=== PATIENT | female | born 1980 | race American Indian/Alaskan Native ===

== ENCOUNTER 2016-12-29 23:08 | Emergency (ER) | payer SELFPAY ==
[2016-12-29 23:17] VITALS: BP 146/88
[2016-12-29 23:40] LABS: Basophils % (Auto) 0.6 % (0.0-1.8); Hematocrit 33.6 % (30.3-42.9); Hemoglobin 10.8 gm/dl (10.1-14.3); Mean Corpuscular HGB Conc 32 % (30-34); Mean Corpuscular Hemoglobin 29 pg (28-32); Mean Corpuscular Volume 91 fl (79-97); Platelet Count 246 K/mm3 (140-440); Red Blood Count 3.68 M/mm3 (3.65-5.03); Red Cell Distribution Width 14.5 % (13.2-15.2); White Blood Count 8.7 K/mm3 (4.5-11.0)
[2016-12-29 23:59] LABS: Anion Gap 19 mmol/L; BUN/Creatinine Ratio 17.77; Blood Urea Nitrogen 16 mg/dL (7-17); Calcium 8.9 mg/dL (8.4-10.2); Carbon Dioxide 23 mmol/L (22-30); Chloride 103.8 mmol/L (98-107); Glucose 98 mg/dL (65-100); Potassium 3.9 mmol/L (3.6-5.0); Sodium 142 mmol/L (137-145)
--- NOTE | 2017-01-01 15:31 | ED Elopement Review ---
ED Pt Elopement review - Results review Lab results: Laboratory Tests 12/29/16 12/29/16 12/29/16 23:30 23:30 23:30 WBC 8.7 RBC 3.68 Hgb 10.8 Hct 33.6 MCV 91 MCH 29 MCHC 32 RDW 14.5 Plt Count 246 Lymph % (Auto) 28.2 Riley % (Auto) 8.0 H Eos % (Auto) 3.0 Baso % (Auto) 0.6 Lymph # 2.5 Riley # 0.7 Eos # 0.3 Baso # 0.1 Seg Neutrophils % 60.2 Seg Neutrophils # 5.3 Sodium 142 Potassium 3.9 Chloride 103.8 Carbon Dioxide 23 Anion Gap 19 BUN 16 Creatinine 0.9 Estimated GFR > 60 BUN/Creatinine Ratio 17.77 Glucose 98 Calcium 8.9 HCG, Qual Negative - Call Back decision Pt Call Back Decision: No action required
== END 2016-12-30 04:41 | disposition left against medical advice (07) ==
LOC: ED 23:08
DX: R11.0 Nausea (principal); Z53.21 Procedure and treatment not carried out due to patient leaving prior to being seen by health care provider
CPT/HCPCS: 36415; 80048; 84703; 85025

== ENCOUNTER 2020-07-21 10:54 | Emergency (ER) | payer OTHER ==
[2020-07-21] MEDS ORDERED: SODIUM CHLORIDE 0.9% 1000 ML 1,000 ML IV ONE (11:23)
[2020-07-21] MEDS ORDERED: MORPHINE 4 MG/1 ML INJ IV ONE ×2 (11:29→14:16)
[2020-07-21] MEDS ORDERED: ONDANSETRON 4 MG/2 ML INJ IV ONE (11:29)
--- NOTE | 2020-07-21 11:36 | Emergency Department Report ---
ED Abdominal Pain HPI - General Chief Complaint: Abdominal Pain Stated Complaint: PELVIC PAIN Time Seen by Provider: 07/21/20 11:23 Source: patient Mode of arrival: Ambulatory Limitations: No Limitations - History of Present Illness Initial Comments: Patient is 40 years old 6 para 1 with 2 miscarriage and 3 ectopic before. Last ectopic was 17 years ago. Patient presented to the ER complaining of sudden onset of left lower quadrant pain approximately 3 hours ago prior to coming to the ER. Patient described her pain as crampy in nature with no radiation increases with movement. No relieving factors. Patient denied any vaginal bleeding, vaginal discharge, dysuria or hematuria. Patient stated that her menstrual cycle ended beginning of July. Patient currently denying any fever, chills, chest pain, shortness of breath or cough. MD Complaint: abdominal pain -: hour(s) (3) Location: LLQ Radiation: none Migration to: no migration Severity: severe Severity scale (0 -10): 9 Quality: cramping Consistency: constant - Related Data Previous Rx's Medication Instructions Recorded Last Taken Type Ciprofloxacin HCl [Ciprofloxacin 500 mg PO Q12HR #14 tab 07/21/20 Unknown Rx TAB] Dicyclomine [Bentyl] 20 mg PO QID #30 tablet 07/21/20 Unknown Rx metroNIDAZOLE [Flagyl] 500 mg PO Q12HR #14 tab 07/21/20 Unknown Rx Allergies Allergy/AdvReac Type Severity Reaction Status Date / Time Penicillins Allergy Unknown Verified 12/29/16 23:17 shellfish derived Allergy Unknown Verified 12/29/16 23:17 ED Review of Systems ROS: Stated complaint: PELVIC PAIN Other details as noted in HPI Comment: All other systems reviewed and negative Constitutional: denies: chills, fever Respiratory: denies: cough, shortness of breath, SOB with exertion, SOB at rest Cardiovascular: denies: chest pain, palpitations Gastrointestinal: abdominal pain. denies: nausea, vomiting, diarrhea, constipation, hematemesis, melena, hematochezia Musculoskeletal: denies: back pain Neurological: denies: headache, weakness, numbness, paresthesias, confusion, abnormal gait ED Past Medical Hx - Past Medical History Previous Medical History?: Yes Hx Arthritis: Yes Hx Psychiatric Treatment: Yes (depression) Hx Asthma: Yes - Surgical History Past Surgical History?: Yes Additional Surgical History: neck surgery - Social History Smoking Status: Never Smoker Substance Use Type: None - Medications Home Medications: Home Medications Medication Instructions Recorded Confirmed Last Taken Type Ciprofloxacin HCl [Ciprofloxacin 500 mg PO Q12HR #14 tab 07/21/20 Unknown Rx TAB] Dicyclomine [Bentyl] 20 mg PO QID #30 tablet 07/21/20 Unknown Rx metroNIDAZOLE [Flagyl] 500 mg PO Q12HR #14 tab 07/21/20 Unknown Rx ED Physical Exam - General Limitations: No Limitations General appearance: in distress (in pain) - Head Head exam: Present: atraumatic, normocephalic, normal inspection - Eye Eye exam: Present: normal appearance - ENT ENT exam: Present: normal exam, normal orophraynx, mucous membranes moist - Neck Neck exam: Present: normal inspection, full ROM. Absent: tenderness, meningismus, lymphadenopathy, thyromegaly - Respiratory Respiratory exam: Present: normal lung sounds bilaterally - Cardiovascular Cardiovascular Exam: Present: regular rate, normal rhythm, normal heart sounds - GI/Abdominal GI/Abdominal exam: Present: soft, tenderness (Left lower quadrant tenderness.), normal bowel sounds. Absent: distended, guarding, rebound, rigid, organomegaly, mass, bruit, pulsatile mass, hernia - Extremities Exam Extremities exam: Present: normal inspection, full ROM, normal capillary refill. Absent: pedal edema, calf tenderness - Back Exam Back exam: Present: normal inspection, full ROM. Absent: CVA tenderness (R), CVA tenderness (L) - Neurological Exam Neurological exam: Present: alert, oriented X3, CN II-XII intact, reflexes normal. Absent: motor sensory deficit - Psychiatric Psychiatric exam: Present: normal mood - Skin Skin exam: Present: warm, intact, normal color ED Course Vital Signs 07/21/20 11:07 Temperature 98.6 F Pulse Rate 66 Respiratory 16 Rate Blood Pressure 131/85 O2 Sat by Pulse 96 Oximetry ED Medical Decision Making - Lab Data Result diagrams: 07/21/20 11:31 07/21/20 11:31 - Radiology Data Radiology results: report reviewed - Medical Decision Making Patient is 40 years old 6 para 1 with 2 miscarriage and 3 ectopic before. Last ectopic was 17 years ago. Patient presented to the ER complaining of sudden onset of left lower quadrant pain approximately 3 hours ago prior to coming to the ER. Patient described her pain as crampy in nature with no radiation increases with movement. No relieving factors. Patient denied any vaginal bleeding, vaginal discharge, dysuria or hematuria. Patient stated that her menstrual cycle ended beginning of July. Patient currently denying any fever, chills, chest pain, shortness of breath or cough. Patient received morphine, Zofran and Dilaudid. Patient stated that she is feeling better. Labs reviewed and is unremarkable. CT abdomen and pelvis with IV contrast showed enteritis. Patient will be started on ciprofloxacin and Flagyl and advised to follow-up with her primary doctor in the next 2 to 3 days and to return to the ER if she develop any new symptoms. Critical care attestation.: If time is entered above; I have spent that time in minutes in the direct care o f this critically ill patient, excluding procedure time. ED Disposition Clinical Impression: Abdominal pain, Enteritis Disposition: DC-01 TO HOME OR SELFCARE Is pt being admited?: No Condition: Stable Instructions: Abdominal Pain (ED), Infectious Colitis (ED) Prescriptions: Dicyclomine [Bentyl] 20 mg PO QID #30 tablet Ciprofloxacin HCl [Ciprofloxacin TAB] 500 mg PO Q12HR #14 tab metroNIDAZOLE [Flagyl] 500 mg PO Q12HR #14 tab Referrals: PRIMARY CARE, [Referring] - 3-5 Days Forms: Work/School Release Form(ED)
[2020-07-21] MEDS ORDERED: HYDROmorphone 1 MG/1 ML INJ IV ONE (12:00)
[2020-07-21 12:17] LABS: Basophils % (Auto) 0.6 % (0.0-1.8); Eosinophils # (Auto) 0.2 K/mm3 (0.0-0.4); Eosinophils % (Auto) 2.1 % (0.0-4.3); Hematocrit 31.4 % (30.3-42.9); Hemoglobin 10.7 gm/dl (10.1-14.3); Lymphocytes # (Auto) 1.8 K/mm3 (1.2-5.4); Lymphocytes % (Auto) 22.5 % (13.4-35.0); Mean Corpuscular HGB Conc 34 % (30-34); Mean Corpuscular Volume 89 fl (79-97); Monocytes # (Auto) 0.5 K/mm3 (0.0-0.8); Monocytes % (Auto) 5.6 % (0.0-7.3); Platelet Count 247 K/mm3 (140-440); Red Blood Count 3.52 M/mm3 (3.65-5.03); Red Cell Distribution Width 14.3 % (13.2-15.2)
[2020-07-21 12:40] LABS: Alanine Aminotransferase 13 units/L (7-56); Albumin 3.5 g/dL (3.9-5); BUN/Creatinine Ratio 13; Blood Urea Nitrogen 10 mg/dL (7-17); Hemolysis Index 4
[2020-07-21 12:41] LABS: Bilirubin,Direct < 0.2 mg/dL (0-0.2)
--- NOTE | 2020-07-21 15:06 | Cat Scan Report ---
CT ABDOMEN AND PELVIS WITH CONTRAST INDICATION / CLINICAL INFORMATION: MAIN. TECHNIQUE: Axial CT images were obtained through the abdomen and pelvis after 100 cc Omni [address]. [address] scans at this location are performed using CT dose reduction for ALARA by means of automated expos ure control. COMPARISON: 05/04/2013 CT spine lumbar FINDINGS: LOWER CHEST: No significant abnormality. HEPATOBILIARY: 1.5 cm enhancing lesion in the posterior inferior right hepatic lobe with subtle centr al hypoattenuation possibly representing a hemangioma. No significant biliary abnormality. PANCREAS: No significant abnormality. SPLEEN: No significant abnormality. ADRENALS: No significant abnormality. GENITOURINARY: No significant abnormality. GASTROINTESTINAL/MESENTERY: Small amount of dependent free fluid in the pelvis. Bowel is mostly decom pressed noting mild bowel wall thickening and enhancement in the left lower quadrant in a clump of sm all bowel with mild amount of adjacent fluid. Appendix is unremarkable. No evidence of obstruction. N o free air. RETROPERITONEUM: No significant adenopathy. REPRODUCTIVE ORGANS: Slightly obscured by other free fluid. 1 cm right adnexal cyst. No definite niels opathy. VASCULAR: No significant abnormality. SKELETAL SYSTEM: No significant abnormality. ADDITIONAL FINDINGS: None. IMPRESSION: 1. Decompressed small bowel in the left lower quadrant with mild bowel wall thickening, enhancement, and adjacent free fluid. Findings can be seen in the setting of enteritis. No bowel obstruction or pe rforation. 2. 1.5 cm enhancing lesion in the posterior/inferior right hepatic lobe with subtle central hypoatten uation possibly representing a hemangioma. Consider correlation with ultrasound. 3. Dependent pelvic free fluid. Signer Name: Vikram Dorsey MD Signed: 07/21/2020 3:01 PM Workstation Name: [id number]
[2020-07-21 18:45] VITALS: BP 134/69
== END 2020-07-21 17:20 | disposition home or self-care (01) ==
LOC: ED 10:54
DX: K52.9 Noninfective gastroenteritis and colitis, unspecified (principal); M19.90 Unspecified osteoarthritis, unspecified site; F32.9 Major depressive disorder, single episode, unspecified; J45.909 Unspecified asthma, uncomplicated; Z79.899 Other long term (current) drug therapy; Z88.0 Allergy status to penicillin; Z91.013 Allergy to seafood
CPT/HCPCS: 36415; 74177; 80048; 80076; 84702; 85025; 86900; 86901; 96361; 96374; 96375; 96376; 99284; J1170; J2270; J2405; J7030; Q9967